=== PATIENT | female | born 1950 | race Caucasian/White ===

== ENCOUNTER 2020-07-30 18:30 | Inpatient (IN) | payer MEDICARE, OTHER ==
[~2020-07-30] VITALS: Ht 162.6 cm; Wt 67.4 kg
--- NOTE | 2020-07-30 18:44 | PHYS DOC ---
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 Patient states that at 1600 she had a new onset of difficulty speaking stating she was unable to speak at all. Then also notes new onset left-sided facial droop and some weakness in the left upper extremity. Denies any vision changes, nausea, vomiting, weakness in the hands. Denies any recent fall or injury. Review of Systems Review of Systems Constitutional: Denies fever or chills [] Eyes: Denies change in visual acuity, redness, or eye pain [] HENT: Denies nasal congestion or sore throat [] Respiratory: Denies cough or shortness of breath [] Cardiovascular: No additional information not addressed in HPI [] GI: Denies abdominal pain, nausea, vomiting, bloody stools or diarrhea [] : Denies dysuria or hematuria [] Musculoskeletal: Denies back pain or joint pain [] Integument: Denies rash or skin lesions [] Neurologic: Denies headache, focal weakness or sensory changes [] Endocrine: Denies polyuria or polydipsia [] All other systems were reviewed and found to be within normal limits, except as documented in this note. Current Medications Current Medications Current Medications Medications (Trade) Dose Ordered Sig/Carlos Start Time Stop Time Status Last Admin Dose Admin Alteplase, Recombinant 54.7 ml @ 54.7 mls/hr 1X ONCE 07/30/20 19:00 07/30/20 19:59 UNV Labetalol HCl (Normodyne Iv Push) 10 mg PRN Q10MIN PRN 07/30/20 19:00 UNV Nicardipine HCl 50 mg/Sodium Chloride 250 ml @ 25 mls/hr CONT PRN PRN 07/30/20 19:00 UNV Sodium Chloride 50 ml @ 50 mls/hr 1X ONCE 07/30/20 19:00 07/30/20 19:59 UNV Physical Exam Physical Exam Constitutional: Well developed, well nourished, no acute distress, non-toxic appearance. [] HENT: Normocephalic, atraumatic, bilateral external ears normal, oropharynx moist, no oral exudates, nose normal. [] Eyes: PERRLA, EOMI, conjunctiva normal, no discharge. [] Neck: Normal range of motion, no tenderness, supple, no stridor. [] Cardiovascular:Heart rate regular rhythm, no murmur [] Lungs & Thorax: Bilateral breath sounds clear to auscultation [] Abdomen: Bowel sounds normal, soft, no tenderness, no masses, no pulsatile masses. [] Skin: Warm, dry, no erythema, no rash. [] Back: No tenderness, no CVA tenderness. [] Extremities: No tenderness, no cyanosis, no clubbing, ROM intact, no edema. [] Neurologic: Alert and oriented X 3, left-sided facial droop with audible dysarthria, normal sensory function, no focal deficits noted. [] Psychologic: Affect normal, judgement normal, mood normal. [] EKG EKG [] Radiology/Procedures Radiology/Procedures [] Course & Med Decision Making Course & Med Decision Making Pertinent Labs and Imaging studies reviewed. (See chart for details) [] 18:44 - CT head negative for ICH 19:00 - Neurology attending paged on pateint arrival to ER and when CT negative, no response. Reaching critical 3 hour patrice from last known well, will proceed with tPA Dragon Disclaimer Dragon Disclaimer This electronic medical record was generated, in whole or in part, using a voice recognition dictation system. PATRICE ROCHE MD Jul 30, 2020 18:44
--- NOTE | 2020-07-30 18:45 | RAD ---
Exam: CT head INDICATION: Weakness TECHNIQUE: Sequential axial images through the head were obtained without the administration of IV co ntrast. Comparisons: None FINDINGS: No focal parenchymal lesion or hemorrhage is identified. There is no midline shift or sulcal effaceme nt. Mild patchy hypodensity in the periventricular white matter. No acute vascular territory infarction i s identified. Veloz-white distinction is preserved. The ventricular system is within normal limits without compression hydrocephalus. The basal cisterns are well maintained. The visualized portions of the paranasal sinuses and mastoid air cells are well-pneumatized. No acute fractures. IMPRESSION: Mild small vessel ischemic change, technically age indeterminate without recent prior imaging. No acu te hemorrhage. Exposure: One or more of the following in the visualized dose reduction techniques were utilized for this examination: 1. Automated exposure control 2. Adjustment of the MA and/or KV according to patient size Use of iterative of reconstructive technique FOR INTERNAL CODING PURPOSES Critical result: Findings discussed with Ines at 07/30/2020 6:40 PM. RESULT CODE: (C) Electronically signed by: Manpreet Bond MD (07/30/2020 6:42 PM) [facility]
[2020-07-30] MEDS ORDERED: IV NORMAL SALINE 50ML 50 ML IV ONE (19:00)
[2020-07-30] MEDS ORDERED: LABETALOL 20 MG/4 ML DISP.SYRIN. IVP PRN (19:00)
[2020-07-30] MEDS ORDERED: ALTEPLASE IV ONE (19:00)
[2020-07-30] MEDS ORDERED: ALTEPLASE 6 MG IV ONE (19:00)
[2020-07-30 19:03] LABS: BASO # 0.1 x10^3/uL (0.0-0.2); BASO % 1 % (0-3); EOS # 0.3 x10^3/uL (0.0-0.7); EOS % 3 % (0-3); HEMATOCRIT 42.2 % (36.0-47.0); HEMOGLOBIN 14.1 g/dL (12.0-15.5); LYMPH # 5.3 x10^3/uL (1.0-4.8); LYMPH % 47 % (24-48); MEAN CORPUSCULAR HEMOGLOBIN 31 pg (25-35); MEAN CORPUSCULAR HGB CONC 34 g/dL (31-37); MEAN CORPUSCULAR VOLUME 94 fL (79-100); MONO # 0.6 x10^3/uL (0.0-1.1); MONO % 6 % (0-9); NEUT % 44 % (31-73); PLATELET COUNT 231 x10^3/uL (140-400); RED BLOOD COUNT 4.51 x10^6/uL (3.50-5.40); RED CELL DISTRIBUTION WIDTH 14.2 % (11.5-14.5); WHITE BLOOD COUNT 11.3 x10^3/uL (4.0-11.0)
[2020-07-30 19:13] LABS: PROTHROMBIN TIME PATIENT 12.5 SEC (11.7-14.0)
[2020-07-30 19:31] LABS: CALCIUM 8.4 mg/dL (8.5-10.1); CREATININE 0.7 mg/dL (0.6-1.0); GFR 82.3; POTASSIUM 3.8 mmol/L (3.5-5.1)
[2020-07-30] MEDS ORDERED: IOHEXOL 350 MG/ML 100 ML VIAL. IV ONE (19:45)
[2020-07-30] MEDS ORDERED: MORPHINE SULFATE 4 MG/ML VIAL. IV PRN (21:00)
[2020-07-30] MEDS ORDERED: ONDANSETRON PF 4 MG/2 ML VIAL. IV PRN (21:00)
--- NOTE | 2020-07-30 21:01 | RAD ---
Exam: CTA head and neck INDICATION: Left-sided facial droop TECHNIQUE: Sequential axial images through the head and neck obtained following the administration of 90 mL of Isovue-370 IV contrast. Sagittal and coronal reformatted images were reconstructed from the axial data and reviewed. 3-D reformatted images were reconstructed from the axial data and reviewed. Comparisons: None FINDINGS: CTA neck: Visual is portions thoracic aorta are unremarkable. Standard three-vessel aortic arch anatomy. Right common carotid artery is patent without evidence of stenosis, occlusion or aneurysm. There is m ild plaque at the origin of the right internal carotid artery without significant stenosis. Left common carotid artery is patent without evidence of stenosis, occlusion or aneurysm. Cervical se gment of the left internal carotid artery is patent without evidence of stenosis, occlusion or aneury sm. Right vertebral artery is patent to the basilar confluence without evidence of stenosis, occlusion or aneurysm. Left vertebral artery is patent to basilar confluence that evidence of stenosis, occlusion or aneurys m. Visualized paraspinal soft tissues are unremarkable. CTA HEAD: Mild calcified plaque at the cavernous segment of the right internal carotid artery. Right MCA is pat ent. Right SHASHANK is patent. Mild calcified plaque at the cavernous segment of the left internal carotid artery without cement minna nosis. Left MCA is patent. Left SHASHANK is patent. Basilar artery is patent without evidence of stenosis, occlusion or aneurysm. survival specialist are patent bilater ally. IMPRESSION: 1. No large vessel occlusion. 2. Mild plaque at the origin of the internal carotid arteries bilaterally without significant stenos is. 3. Mild calcified plaque at the cavernous segments of the internal carotid arteries bilaterally with out stenosis stenosis. Exposure: One or more of the following in the visualized dose reduction techniques were utilized for this examination: 1. Automated exposure control 2. Adjustment of the MA and/or KV according to patient size 3. Use of iterative of reconstructive technique FOR INTERNAL CODING PURPOSES Critical result: Findings discussed with Rach at 07/30/2020 8:50 PM. RESULT CODE: (C) Electronically signed by: Manpreet Bond MD (07/30/2020 8:58 PM) [facility]
--- NOTE | 2020-07-30 21:20 | EKG ---
[facility] [address] [place] [address] Test Date: 2020-07-30 Test Time: 18:44:46 Pat Name: UNIQUE ARAUJO Department: Room: Gender: F Mud Jack Operator: : [id number] Requested By: PATRICE ROCHE Order Number: [id number] Reading MD: Measurements Intervals [place] Rate: 89 P: 67 VT: 140 QRS: 58 QRSD: 94 T: 47 QT: 392 QTc: 478 Interpretive Statements SINUS RHYTHM PROLONGED QT NO SPECIFIC ECG ABNORMALITIES RI6.02 No previous ECG available for comparison
[2020-07-30 21:45] VITALS: BP 154/78
[2020-07-30 22:00] VITALS: BP 131/77
[2020-07-30 22:15] VITALS: BP 138/70
[2020-07-30 22:30] VITALS: BP 133/72
[2020-07-30 23:00] VITALS: BP 138/70
[2020-07-30 23:30] VITALS: BP 135/64
[2020-07-31] VITALS (26 sets, daily range): BP systolic 112–143; BP diastolic 50–67
[2020-07-31] MEDS ORDERED: DOXY100C2 PO (02:04)
[2020-07-31] MEDS ORDERED: AMLO-186 PO (02:04)
[2020-07-31] MEDS ORDERED: CETI10TA74 PO (02:04)
[2020-07-31] MEDS ORDERED: OMEP40CA45 PO (02:04)
[2020-07-31] MEDS ORDERED: ALBU2.5V8 INH (02:04)
[2020-07-31 05:29] LABS: BASO % 0 % (0-3); EOS # 0.2 x10^3/uL (0.0-0.7); EOS % 3 % (0-3); HEMATOCRIT 41.2 % (36.0-47.0); HEMOGLOBIN 13.8 g/dL (12.0-15.5); LYMPH # 3.2 x10^3/uL (1.0-4.8); LYMPH % 36 % (24-48); MEAN CORPUSCULAR HEMOGLOBIN 31 pg (25-35); MEAN CORPUSCULAR HGB CONC 33 g/dL (31-37); MEAN CORPUSCULAR VOLUME 94 fL (79-100); MONO # 0.6 x10^3/uL (0.0-1.1); MONO % 6 % (0-9); NEUT # 4.8 x10^3/uL (1.8-7.7); NEUT % 54 % (31-73); PLATELET COUNT 212 x10^3/uL (140-400); RED BLOOD COUNT 4.39 x10^6/uL (3.50-5.40); RED CELL DISTRIBUTION WIDTH 14.2 % (11.5-14.5); WHITE BLOOD COUNT 8.9 x10^3/uL (4.0-11.0)
[2020-07-31 05:47] LABS: ALBUMIN 2.8 g/dL (3.4-5.0); ALBUMIN/GLOBULIN RATIO 0.6 (1.0-1.7); CALCIUM 8.9 mg/dL (8.5-10.1); CREATININE 0.6 mg/dL (0.6-1.0); GFR 98.3; POTASSIUM 3.6 mmol/L (3.5-5.1); TOTAL BILIRUBIN 0.6 mg/dL (0.2-1.0); TOTAL PROTEIN 7.2 g/dL (6.4-8.2)
[2020-07-31 05:52] LABS: CHOLESTEROL/HDL RATIO 5.4
--- NOTE | 2020-07-31 06:00 | NUR ---
Received patient to room 105 after report from ED RN with retinal surgeon at bed side. NIH stroke scale initiated.All monitors applied and stroke protocol initiated. Left side of mouth found to droop badly with pt having difficulty controlling secretions on lt side of mouth and forming words, leading to severe slurring. Lt eye drooping moderately. Pt states she feels like this is "better" than on arrival to ED. Stroke education begun. Will monitor for changes.
--- NOTE | 2020-07-31 10:37 | PDOC1 ---
History and Physical Date of Admission Date of Admission DATE: 07/31/20 TIME: 10:34 Identification/Chief Complaint Chief Complaint LEFT SIDED FACIAL DROOP, dysarthria x 3 hrs History of Present Illness History of Present Illness 70 year old female with reported history of TBI, hypertension and GERD presented emergency department for new onset of dysarthria and left-sided facial droop, family called 911 . Patient states that at 1600 4-17 she had a new onset of difficulty speaking stating she was unable to speak also noted new onset left-sided facial droop and some weakness in the left upper extremity. Denies any vision changes, nausea, vomiting, SOME weakness swallow left gip remains mildly weak today given TPA in ER , admitted to icu after neurology consult ct head c/w Mild small vessel ischemic change, age indeterminate LDL cholesterol 128 hgb 13.8 currently on 3 liters nc o2 , diastolic htn in er NOTED Mild plaque at the origin of the internal carotid arteries bilaterally without significant stenosis. on cta head and neck on dysphagia I diet w/ honey thick liquids, swallow precautions, ST f/u for dysphagia. 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 Past Medical History Past Medical History TBI, GERD Cardiovascular: HTN, Hyperlipidemia Infectious disease: No pertinent hx Endocrine: No pertinent hx Dermatology: No pertinent hx Family History Family History: Hypertension Social History Smoke: <1 pack per day ALCOHOL: none Drugs: None Current Medications Current Medications Current Medications Alteplase, Recombinant 6 ml @ 360 mls/hr 1X ONCE IV Last administered on 07/30/20at 19:23; Start 07/30/20 at 19:00; Stop 07/30/20 at 19:05; Status DC Alteplase, Recombinant 55 ml @ 55 mls/hr 1X ONCE IV Last administered on 07/30/20at 19:26; Start 07/30/20 at 19:00; Stop 07/30/20 at 19:59; Status DC Sodium Chloride 50 ml @ 50 mls/hr 1X ONCE IV Last administered on 07/30/20at 20:26; Start 07/30/20 at 19:00; Stop 07/30/20 at 19:59; Status DC Labetalol HCl (Normodyne Iv Push) 10 mg PRN Q10MIN PRN IVP HYPERTENSION; Start 07/30/20 at 19:00 Nicardipine HCl 50 mg/Sodium Chloride 250 ml @ 25 mls/hr CONT PRN PRN IV HYPERTENSION; Start 07/30/20 at 19:00 Iohexol (Omnipaque 350 Mg/ml) 75 ml 1X ONCE IV Last administered on 07/30/20at 20:25; Start 07/30/20 at 19:45; Stop 07/30/20 at 19:46; Status DC Ondansetron HCl (Zofran) 4 mg PRN Q8HRS PRN IV NAUSEA/VOMITING; Start 07/30/20 at 21:00; Stop 07/31/20 at 20:59 Morphine Sulfate (Morphine Sulfate) 4 mg PRN Q2HR PRN IV PAIN; Start 07/30/20 at 21:00; Stop 07/31/20 at 20:59 Active Scripts Active Reported Proair Hfa (Albuterol Sulfate) 8.5 Gm Hfa.aer.ad 1 Puff INH PRN Q6HRS PRN Omeprazole 40 Mg Capsule.dr 1 Cap PO DAILY Amlodipine Besylate 5 Mg Tablet 5 Mg PO DAILY Doxycycline Hyclate 100 Mg Capsule 1 Cap PO BID Zyrtec (Cetirizine Hcl) 10 Mg Tablet 1 Tab PO DAILY Allergies Allergies: Coded Allergies: codeine (Verified Adverse Reaction, Intermediate, HEADACHE, 07/31/20) ROS Review of System Constitutional: Denies fever or chills [] Eyes: Denies change in visual acuity, redness, or eye pain [] HENT: Denies nasal congestion or sore throat [] Respiratory: Denies cough or shortness of breath [] Cardiovascular: No additional information not addressed in HPI [] GI: Denies abdominal pain, nausea, vomiting, bloody stools or diarrhea [] : Denies dysuria or hematuria [] Musculoskeletal: Denies back pain or joint pain [] Integument: Denies rash or skin lesions [] Neurologic: Denies headache, pos left arm focal weakness better [] Endocrine: Denies polyuria or polydipsia [] 14 pt systems were reviewed and found to be within normal limits, except as documented General: No: Chills, Night Sweats, Fatigue, Malaise, Appetite, Other PSYCHOLOGICAL ROS: No: Anxiety, Behavioral Disorder, Concentration difficultie, Decreased libido, Depression, Disorientation, Hallucinations, Hostility, Irritablity, Memory difficulties, Mood Swings, Obsessive thoughts, Physical abuse, Sexual abuse, Sleep disturbances, Suicidal ideation, Other Eyes: Yes Decreased vision; No Blurry vision, No Double vision, No Dry eyes, No Excessive tearing, No Eye Pain, No Itchy Eyes, No Loss of vision, No Photophobia, No Scotomata, No Uses contacts, No Uses glasses, No Other HEENT: YES: Other (right facial weakness); No: Heacaches, Visual Changes, Hearing change, Nasal congestion, Nasal discharge, Oral lesions, Sinus pain, Sore Throat, Epistaxis, Sneezing, Snoring, Tinnitus, Vertigo, Vocal changes Hematological and Lymphatic: No: Bleeding Problems, Blood Clots, Blood Transfusions, Brusing, Night Sweats, Pallor, Swollen Lymph Nodes, Other ENDOCRINE: No: Breast Changes, Galactorrhea, Hair Pattern Changes, Hot Flashes, Malaise/lethargy, Mood Swings, Palpitations, Polydipsia/polyuria, Skin Changes, Temperature Intolerance, Unexpected Weight Changes, Other Respiratory: No: Cough, Hemoptysis, Orthopnea, Pleuritic Pain, Shortness of breath, SOB with excertion, Sputum Changes, Stridor, Tachypnea, Wheezing, Other Cardiovascular: No Chest Pain, No Palpitations, No Orthopnea, No Paroxysmal Noc. Dyspnea, No Edema, No Lt Headedness, No Other Gastrointestinal: No Nausea, No Vomiting, No Abdominal Pain, No Diarrhea, No Constipation, No Melena, No Hematochezia, No Other Musculoskeletal: Yes Joint Stiffness, Yes Muscular Weakness Neurological: Yes Gait Disturbance Skin: No Dry Skin, No Eczema, No Hair Changes, No Lumps, No Mole Changes, No Mottling, No Nail Changes, No Pruritus, No Rash, No Skin Lesion Changes, No Other, No Acne Physical Exam Physical Exam Constitutional: Well developed, well nourished, no acute distress, non-toxic appearance. [] HENT: Normocephalic, atraumatic, bilateral external ears normal, oropharynx moist, no oral exudates, nose normal. [] poor dentition Eyes: PERRLA, EOMI, conjunctiva normal, no discharge. [] right facial weakness Neck: Normal range of motion, no tenderness, supple, no stridor. [] Cardiovascular:Heart rate regular rhythm, no murmur [] Lungs & Thorax: Bilateral breath sounds clear to auscultation [] Abdomen: Bowel sounds normal, soft, no tenderness, no masses, no pulsatile masses. [] Skin: Warm, dry, no erythema, no rash. [] Back: No tenderness, no CVA tenderness. [] Extremities: No tenderness, no cyanosis, no clubbing, ROM intact, no edema. [] Neurologic: Alert and oriented X 3, left-sided facial droop with dysarthria, normal sensory function, no focal deficits noted. [] Psychologic: Affect normal, judgment normal, mood normal. [] General: Alert, Oriented X3, Cooperative, No acute distress HEENT: Atraumatic, Mucous membr. moist/pink Lungs: Clear to auscultation, Normal air movement Heart: S1S2, RRR, no thrills, no gallops Breasts: Not examined Abdomen: Normal bowel sounds, Soft Rectal Exam: not examined PELVIC: Examination not indicated Extremities: No cyanosis, No edema Neuro: Other (left facial droop) Psych/Mental Status: Mental status NL, Mood NL Vitals Vitals Vital Signs Date Time Temp Pulse Resp B/P (MAP) Pulse Ox O2 Delivery O2 Flow Rate FiO2 07/31/20 10:00 87 22 121/62 (81) 91 Nasal Cannula 4.0 07/31/20 08:00 98.4 98.4 Labs Labs Laboratory Tests Test 07/30/20 18:52 07/30/20 19:17 07/30/20 19:18 07/31/20 05:00 White Blood Count 11.3 x10^3/uL (4.0-11.0) 8.9 x10^3/uL (4.0-11.0) Red Blood Count 4.51 x10^6/uL (3.50-5.40) 4.39 x10^6/uL (3.50-5.40) Hemoglobin 14.1 g/dL (12.0-15.5) 13.8 g/dL (12.0-15.5) Hematocrit 42.2 % (36.0-47.0) 41.2 % (36.0-47.0) Mean Corpuscular Volume 94 fL (79-100) 94 fL (79-100) Mean Corpuscular Hemoglobin 31 pg (25-35) 31 pg (25-35) Mean Corpuscular Hemoglobin Concent 34 g/dL (31-37) 33 g/dL (31-37) Red Cell Distribution Width 14.2 % (11.5-14.5) 14.2 % (11.5-14.5) Platelet Count 231 x10^3/uL (140-400) 212 x10^3/uL (140-400) Neutrophils (%) (Auto) 44 % (31-73) 54 % (31-73) Lymphocytes (%) (Auto) 47 % (24-48) 36 % (24-48) Monocytes (%) (Auto) 6 % (0-9) 6 % (0-9) Eosinophils (%) (Auto) 3 % (0-3) 3 % (0-3) Basophils (%) (Auto) 1 % (0-3) 0 % (0-3) Neutrophils # (Auto) 5.0 x10^3/uL (1.8-7.7) 4.8 x10^3/uL (1.8-7.7) Lymphocytes # (Auto) 5.3 x10^3/uL (1.0-4.8) 3.2 x10^3/uL (1.0-4.8) Monocytes # (Auto) 0.6 x10^3/uL (0.0-1.1) 0.6 x10^3/uL (0.0-1.1) Eosinophils # (Auto) 0.3 x10^3/uL (0.0-0.7) 0.2 x10^3/uL (0.0-0.7) Basophils # (Auto) 0.1 x10^3/uL (0.0-0.2) 0.0 x10^3/uL (0.0-0.2) Prothrombin Time 12.5 SEC (11.7-14.0) Prothromb Time International Ratio 1.0 (0.8-1.1) Activated Partial Thromboplast Time 30 SEC (24-38) Sodium Level 142 mmol/L (136-145) 143 mmol/L (136-145) Potassium Level 3.8 mmol/L (3.5-5.1) 3.6 mmol/L (3.5-5.1) Chloride Level 106 mmol/L (98-107) 107 mmol/L (98-107) Carbon Dioxide Level 25 mmol/L (21-32) 27 mmol/L (21-32) Anion Gap 11 (6-14) 9 (6-14) Blood Urea Nitrogen 13 mg/dL (7-20) 12 mg/dL (7-20) Creatinine 0.7 mg/dL (0.6-1.0) 0.6 mg/dL (0.6-1.0) Estimated GFR (Cockcroft-Gault) 82.3 98.3 Glucose Level 111 mg/dL (70-99) 110 mg/dL (70-99) Calcium Level 8.4 mg/dL (8.5-10.1) 8.9 mg/dL (8.5-10.1) Troponin I Quantitative < 0.017 ng/mL (0.000-0.055) Glucose (Fingerstick) 118 mg/dL (70-99) BUN/Creatinine Ratio 20 (6-20) Total Bilirubin 0.6 mg/dL (0.2-1.0) Aspartate Amino Transf (AST/SGOT) 15 U/L (15-37) Alanine Aminotransferase (ALT/SGPT) 11 U/L (14-59) Alkaline Phosphatase 78 U/L (46-116) Total Protein 7.2 g/dL (6.4-8.2) Albumin 2.8 g/dL (3.4-5.0) Albumin/Globulin Ratio 0.6 (1.0-1.7) Triglycerides Level 132 mg/dL (0-150) Cholesterol Level 189 mg/dL (0-200) LDL Cholesterol, Calculated 128 mg/dL (0-100) VLDL Cholesterol, Calculated 26 mg/dL (0-40) Non-HDL Cholesterol Calculated 154 mg/dL (0-129) HDL Cholesterol 35 mg/dL (40-60) Cholesterol/HDL Ratio 5.4 Laboratory Tests Test 07/30/20 18:52 07/30/20 19:17 07/30/20 19:18 07/31/20 05:00 White Blood Count 11.3 x10^3/uL (4.0-11.0) 8.9 x10^3/uL (4.0-11.0) Red Blood Count 4.51 x10^6/uL (3.50-5.40) 4.39 x10^6/uL (3.50-5.40) Hemoglobin 14.1 g/dL (12.0-15.5) 13.8 g/dL (12.0-15.5) Hematocrit 42.2 % (36.0-47.0) 41.2 % (36.0-47.0) Mean Corpuscular Volume 94 fL (79-100) 94 fL (79-100) Mean Corpuscular Hemoglobin 31 pg (25-35) 31 pg (25-35) Mean Corpuscular Hemoglobin Concent 34 g/dL (31-37) 33 g/dL (31-37) Red Cell Distribution Width 14.2 % (11.5-14.5) 14.2 % (11.5-14.5) Platelet Count 231 x10^3/uL (140-400) 212 x10^3/uL (140-400) Neutrophils (%) (Auto) 44 % (31-73) 54 % (31-73) Lymphocytes (%) (Auto) 47 % (24-48) 36 % (24-48) Monocytes (%) (Auto) 6 % (0-9) 6 % (0-9) Eosinophils (%) (Auto) 3 % (0-3) 3 % (0-3) Basophils (%) (Auto) 1 % (0-3) 0 % (0-3) Neutrophils # (Auto) 5.0 x10^3/uL (1.8-7.7) 4.8 x10^3/uL (1.8-7.7) Lymphocytes # (Auto) 5.3 x10^3/uL (1.0-4.8) 3.2 x10^3/uL (1.0-4.8) Monocytes # (Auto) 0.6 x10^3/uL (0.0-1.1) 0.6 x10^3/uL (0.0-1.1) Eosinophils # (Auto) 0.3 x10^3/uL (0.0-0.7) 0.2 x10^3/uL (0.0-0.7) Basophils # (Auto) 0.1 x10^3/uL (0.0-0.2) 0.0 x10^3/uL (0.0-0.2) Prothrombin Time 12.5 SEC (11.7-14.0) Prothromb Time International Ratio 1.0 (0.8-1.1) Activated Partial Thromboplast Time 30 SEC (24-38) Sodium Level 142 mmol/L (136-145) 143 mmol/L (136-145) Potassium Level 3.8 mmol/L (3.5-5.1) 3.6 mmol/L (3.5-5.1) Chloride Level 106 mmol/L (98-107) 107 mmol/L (98-107) Carbon Dioxide Level 25 mmol/L (21-32) 27 mmol/L (21-32) Anion Gap 11 (6-14) 9 (6-14) Blood Urea Nitrogen 13 mg/dL (7-20) 12 mg/dL (7-20) Creatinine 0.7 mg/dL (0.6-1.0) 0.6 mg/dL (0.6-1.0) Estimated GFR (Cockcroft-Gault) 82.3 98.3 Glucose Level 111 mg/dL (70-99) 110 mg/dL (70-99) Calcium Level 8.4 mg/dL (8.5-10.1) 8.9 mg/dL (8.5-10.1) Troponin I Quantitative < 0.017 ng/mL (0.000-0.055) Glucose (Fingerstick) 118 mg/dL (70-99) BUN/Creatinine Ratio 20 (6-20) Total Bilirubin 0.6 mg/dL (0.2-1.0) Aspartate Amino Transf (AST/SGOT) 15 U/L (15-37) Alanine Aminotransferase (ALT/SGPT) 11 U/L (14-59) Alkaline Phosphatase 78 U/L (46-116) Total Protein 7.2 g/dL (6.4-8.2) Albumin 2.8 g/dL (3.4-5.0) Albumin/Globulin Ratio 0.6 (1.0-1.7) Triglycerides Level 132 mg/dL (0-150) Cholesterol Level 189 mg/dL (0-200) LDL Cholesterol, Calculated 128 mg/dL (0-100) VLDL Cholesterol, Calculated 26 mg/dL (0-40) Non-HDL Cholesterol Calculated 154 mg/dL (0-129) HDL Cholesterol 35 mg/dL (40-60) Cholesterol/HDL Ratio 5.4 Images Images Exam: CTA head and neck INDICATION: Left-sided facial droop TECHNIQUE: Sequential axial images through the head and neck obtained following the administration of 90 mL of Isovue-370 IV contrast. Sagittal and coronal reformatted images were reconstructed from the axial data and reviewed. 3-D reformatted images were reconstructed from the axial data and reviewed. Comparisons: None FINDINGS: CTA neck: Visual is portions thoracic aorta are unremarkable. Standard three-vessel aortic arch anatomy. Right common carotid artery is patent without evidence of stenosis, occlusion or aneurysm. There is mild plaque at the origin of the right internal carotid artery without significant stenosis. Left common carotid artery is patent without evidence of stenosis, occlusion or aneurysm. Cervical segment of the left internal carotid artery is patent without evidence of stenosis, occlusion or aneurysm. Right vertebral artery is patent to the basilar confluence without evidence of stenosis, occlusion or aneurysm. Left vertebral artery is patent to basilar confluence that evidence of stenosis, occlusion or aneurysm. Visualized paraspinal soft tissues are unremarkable. CTA HEAD: Mild calcified plaque at the cavernous segment of the right internal carotid artery. Right MCA is patent. Right SHASHANK is patent. Mild calcified plaque at the cavernous segment of the left internal carotid artery without cement stenosis. Left MCA is patent. Left SHASHANK is patent. Basilar artery is patent without evidence of stenosis, occlusion or aneurysm. receptionist clerk are patent bilaterally. IMPRESSION: 1. No large vessel occlusion. 2. Mild plaque at the origin of the internal carotid arteries bilaterally without significant stenosis. 3. Mild calcified plaque at the cavernous segments of the internal carotid arteries bilaterally without stenosis stenosis. Exposure: One or more of the following in the visualized dose reduction techniques were utilized for this examination: 1. Automated exposure control 2. Adjustment of the MA and/or KV according to patient size 3. Use of iterative of reconstructive technique FOR INTERNAL CODING PURPOSES Critical result: Findings discussed with Rach at 07/30/2020 8:50 PM. RESULT CODE: (C) Exam: CT head INDICATION: Weakness TECHNIQUE: Sequential axial images through the head were obtained without the administration of IV contrast. Comparisons: None FINDINGS: No focal parenchymal lesion or hemorrhage is identified. There is no midline shift or sulcal effacement. Mild patchy hypodensity in the periventricular white matter. No acute vascular territory infarction is identified. Veloz-white distinction is preserved. The ventricular system is within normal limits without compression hy drocephalus. The basal cisterns are well maintained. The visualized portions of the paranasal sinuses and mastoid air cells are well- pneumatized. No acute fractures. IMPRESSION: Mild small vessel ischemic change, technically age indeterminate without recent prior imaging. No acute hemorrhage. Exposure: One or more of the following in the visualized dose reduction techniques were utilized for this examination: 1. Automated exposure control 2. Adjustment of the MA and/or KV according to patient size Use of iterative of reconstructive technique FOR INTERNAL CODING PURPOSES Critical result: Findings discussed with Ines at 07/30/2020 6:40 PM. RESULT CODE: (C) Electronically signed by: Manpreet Keita MD (07/30/2020 6:42 PM) [facility] Exam: CTA head and neck INDICATION: Left-sided facial droop TECHNIQUE: Sequential axial images through the head and neck obtained following the administration of 90 mL of Isovue-370 IV contrast. Sagittal and coronal reformatted images were reconstructed from the axial data and reviewed. 3-D reformatted images were reconstructed from the axial data and reviewed. Comparisons: None FINDINGS: CTA neck: Visual is portions thoracic aorta are unremarkable. Standard three-vessel aortic arch anatomy. Right common carotid artery is patent without evidence of stenosis, occlusion or aneurysm. There is mild plaque at the origin of the right internal carotid artery without significant stenosis. Left common carotid artery is patent without evidence of stenosis, occlusion or aneurysm. Cervical segment of the left internal carotid artery is patent without evidence of stenosis, occlusion or aneurysm. Right vertebral artery is patent to the basilar confluence without evidence of stenosis, occlusion or aneurysm. Left vertebral artery is patent to basilar confluence that evidence of stenosis, occlusion or aneurysm. Visualized paraspinal soft tissues are unremarkable. CTA HEAD: Mild calcified plaque at the cavernous segment of the right internal carotid artery. Right MCA is patent. Right SHASHANK is patent. Mild calcified plaque at the cavernous segment of the left internal carotid artery without cement stenosis. Left MCA is patent. Left SHASHANK is patent. Basilar artery is patent without evidence of stenosis, occlusion or aneurysm. receptionist clerk are patent bilaterally. IMPRESSION: 1. No large vessel occlusion. 2. Mild plaque at the origin of the internal carotid arteries bilaterally without significant stenosis. 3. Mild calcified plaque at the cavernous segments of the internal carotid arteries bilaterally without stenosis stenosis. Exposure: One or more of the following in the visualized dose reduction techniques were utilized for this examination: 1. Automated exposure control 2. Adjustment of the MA and/or KV according to patient size 3. Use of iterative of reconstructive technique FOR INTERNAL CODING PURPOSES Critical result: Findings discussed with Rach at 07/30/2020 8:50 PM. RESULT CODE: (C) Electronically signed by: Manpreet Keita MD (07/30/2020 8:58 PM) [facility] DICTATED and SIGNED BY: MANPREET KEITA MD DATE: 07/30/[id number] VTE Prophylaxis Ordered VTE Prophylaxis Devices: No VTE Pharmacological Prophylaxi: Contraindicated Assessment/Plan Assessment/Plan impression Acute CVA POST emergent TPA with acute stroke like symptoms in TPA window , aphasia resolved, dysphagia persists Hyperlipidemia hypertension, better control since admit GERD Dysarthria Mild plaque at the origin of the internal carotid arteries bilaterally without significant stenosis. tobacco abuse disorder remote hx Chamorro's palsy plan admit ICU BED Neurology consult ASA when able STATIN neurochecks q 4 hrs consider MRI HEAD PT/OT/ST on dysphagia I diet w/ honey thick liquids swallow precautions, ST f/u for dysphagia. smoking cessation encouraged 34 MIN cc time Justifications for Admission Other Justification JAVON PRINGLE MD Jul 31, 2020 10:37
[2020-07-31] MEDS ORDERED: ALBUTEROL SULFATE 2.5 MG/3 ML NEBU. INH PRN (10:45)
--- NOTE | 2020-07-31 10:51 | NUR ---
Bedside Swallow Evaluation completed. Please refer to full report in intervention section for additional information. Impressions: Moderate oropharyngeal dysphagia w/ prior R side facial/labial impairment now w/ L side impairment from stroke resulting in oral spillage and decreased control and transit of boluses. Pt appears at low risk of aspiration for dysphagia I diet w/ honey thick liquids. Pt demonstrates decreased control of thin liquids both anteriorly and posteriorly and s/s aspiration were noted. Pt at risk of aspiration w/ thin liquids. Recommendations: Initiate dysphagia I diet w/ honey thick liquids, swallow precautions, ST f/u for dysphagia.
--- NOTE | 2020-07-31 15:07 | PDOC2 ---
CONSULT Date of Consult Date of Consult DATE: 07/31/20 TIME: 15:07 Reason for Consult Reason for Consult: CVA Identification/Chief Complaint Chief Complaint left side weakness History of Present Illness Reason for Visit: This patient is 70-year-old woman with past medical history of multiple medical problems who presented to emergency room with acute onset of symptoms patient was having left facial droop, difficulty speaking, weakness on left side of the body. Patient presented to emergency room acute fashion. Patient was within the window for IV t-PA. Patient did not have any contraindications for IV t-PA. They accepted risk and benefit for IV t-PA. Patient patient received IV t-PA Past Medical History Cardiovascular: HTN, Hyperlipidemia Infectious disease: No pertinent hx Endocrine: No pertinent hx Dermatology: No pertinent hx Family History Family History: Hypertension Social History <1 pack per day ALCOHOL: none Drugs: None Current Medications Current Medications Current Medications Alteplase, Recombinant 6 ml @ 360 mls/hr 1X ONCE IV Last administered on 07/30/20at 19:23; Start 07/30/20 at 19:00; Stop 07/30/20 at 19:05; Status DC Alteplase, Recombinant 55 ml @ 55 mls/hr 1X ONCE IV Last administered on 07/30/20at 19:26; Start 07/30/20 at 19:00; Stop 07/30/20 at 19:59; Status DC Sodium Chloride 50 ml @ 50 mls/hr 1X ONCE IV Last administered on 07/30/20at 20:26; Start 07/30/20 at 19:00; Stop 07/30/20 at 19:59; Status DC Labetalol HCl (Normodyne Iv Push) 10 mg PRN Q10MIN PRN IVP HYPERTENSION; Start 07/30/20 at 19:00 Nicardipine HCl 50 mg/Sodium Chloride 250 ml @ 25 mls/hr CONT PRN PRN IV HYPERTENSION; Start 07/30/20 at 19:00 Iohexol (Omnipaque 350 Mg/ml) 75 ml 1X ONCE IV Last administered on 07/30/20at 20:25; Start 07/30/20 at 19:45; Stop 07/30/20 at 19:46; Status DC Ondansetron HCl (Zofran) 4 mg PRN Q8HRS PRN IV NAUSEA/VOMITING; Start 07/30/20 at 21:00; Stop 07/31/20 at 20:59 Morphine Sulfate (Morphine Sulfate) 4 mg PRN Q2HR PRN IV PAIN; Start 07/30/20 at 21:00; Stop 07/31/20 at 20:59 Albuterol Sulfate (Ventolin Neb Soln) 2.5 mg PRN Q6HRS PRN INH SHORTNESS OF BREATH; Start 07/31/20 at 10:45 Amlodipine Besylate (Norvasc) 5 mg DAILY PO ; Start 08/01/20 at 09:00 Cetirizine HCl (ZyrTEC) 10 mg DAILY PO ; Start 08/01/20 at 09:00 Pantoprazole Sodium (Protonix) 40 mg DAILYAC PO ; Start 08/01/20 at 07:30 Active Scripts Active Reported Proair Hfa (Albuterol Sulfate) 8.5 Gm Hfa.aer.ad 1 Puff INH PRN Q6HRS PRN Omeprazole 40 Mg Capsule.dr 1 Cap PO DAILY Amlodipine Besylate 5 Mg Tablet 5 Mg PO DAILY Doxycycline Hyclate 100 Mg Capsule 1 Cap PO BID Zyrtec (Cetirizine Hcl) 10 Mg Tablet 1 Tab PO DAILY Allergies Allergies: Coded Allergies: codeine (Verified Adverse Reaction, Intermediate, HEADACHE, 07/31/20) Physical Exam Physical Exam General no acute distress. HEENT: Normocephalic and atraumatic. NECK: Supple without bruit Respiratory: Clear to auscultation bilaterally Heart: Regular rate and rhythm, S1S2 normal NEUROLOGIC: Mental status Alert able to tell her name Knows in hospital Cranial nerve equally reactive pupils, and intact extraocular movements. Left facial asymmetry. Palate elevates and tongue protrudes in midline. Reflexes are 1-2 with flexor plantar responses. Coordination no dysmetria Strength able to move all exts left side weakness effort dependent Sensory exam is intact for light touch and pinprick. Gait in bed. A 10-point review of systems was obtained. Other than the history of present illness the remainder of the review of systems is negative. Vitals VITALS Vital Signs Date Time Temp Pulse Resp B/P (MAP) Pulse Ox O2 Delivery O2 Flow Rate FiO2 07/31/20 15:00 72 18 124/54 (77) 97 Nasal Cannula 3.0 07/31/20 12:00 98.2 98.2 Labs Labs Laboratory Tests Test 07/30/20 18:52 4/17/21 19:17 07/30/20 19:18 07/31/20 05:00 White Blood Count 11.3 x10^3/uL (4.0-11.0) 8.9 x10^3/uL (4.0-11.0) Red Blood Count 4.51 x10^6/uL (3.50-5.40) 4.39 x10^6/uL (3.50-5.40) Hemoglobin 14.1 g/dL (12.0-15.5) 13.8 g/dL (12.0-15.5) Hematocrit 42.2 % (36.0-47.0) 41.2 % (36.0-47.0) Mean Corpuscular Volume 94 fL (79-100) 94 fL (79-100) Mean Corpuscular Hemoglobin 31 pg (25-35) 31 pg (25-35) Mean Corpuscular Hemoglobin Concent 34 g/dL (31-37) 33 g/dL (31-37) Red Cell Distribution Width 14.2 % (11.5-14.5) 14.2 % (11.5-14.5) Platelet Count 231 x10^3/uL (140-400) 212 x10^3/uL (140-400) Neutrophils (%) (Auto) 44 % (31-73) 54 % (31-73) Lymphocytes (%) (Auto) 47 % (24-48) 36 % (24-48) Monocytes (%) (Auto) 6 % (0-9) 6 % (0-9) Eosinophils (%) (Auto) 3 % (0-3) 3 % (0-3) Basophils (%) (Auto) 1 % (0-3) 0 % (0-3) Neutrophils # (Auto) 5.0 x10^3/uL (1.8-7.7) 4.8 x10^3/uL (1.8-7.7) Lymphocytes # (Auto) 5.3 x10^3/uL (1.0-4.8) 3.2 x10^3/uL (1.0-4.8) Monocytes # (Auto) 0.6 x10^3/uL (0.0-1.1) 0.6 x10^3/uL (0.0-1.1) Eosinophils # (Auto) 0.3 x10^3/uL (0.0-0.7) 0.2 x10^3/uL (0.0-0.7) Basophils # (Auto) 0.1 x10^3/uL (0.0-0.2) 0.0 x10^3/uL (0.0-0.2) Prothrombin Time 12.5 SEC (11.7-14.0) Prothromb Time International Ratio 1.0 (0.8-1.1) Activated Partial Thromboplast Time 30 SEC (24-38) Sodium Level 142 mmol/L (136-145) 143 mmol/L (136-145) Potassium Level 3.8 mmol/L (3.5-5.1) 3.6 mmol/L (3.5-5.1) Chloride Level 106 mmol/L (98-107) 107 mmol/L (98-107) Carbon Dioxide Level 25 mmol/L (21-32) 27 mmol/L (21-32) Anion Gap 11 (6-14) 9 (6-14) Blood Urea Nitrogen 13 mg/dL (7-20) 12 mg/dL (7-20) Creatinine 0.7 mg/dL (0.6-1.0) 0.6 mg/dL (0.6-1.0) Estimated GFR (Cockcroft-Gault) 82.3 98.3 Glucose Level 111 mg/dL (70-99) 110 mg/dL (70-99) Calcium Level 8.4 mg/dL (8.5-10.1) 8.9 mg/dL (8.5-10.1) Troponin I Quantitative < 0.017 ng/mL (0.000-0.055) Glucose (Fingerstick) 118 mg/dL (70-99) BUN/Creatinine Ratio 20 (6-20) Total Bilirubin 0.6 mg/dL (0.2-1.0) Aspartate Amino Transf (AST/SGOT) 15 U/L (15-37) Alanine Aminotransferase (ALT/SGPT) 11 U/L (14-59) Alkaline Phosphatase 78 U/L (46-116) Total Protein 7.2 g/dL (6.4-8.2) Albumin 2.8 g/dL (3.4-5.0) Albumin/Globulin Ratio 0.6 (1.0-1.7) Triglycerides Level 132 mg/dL (0-150) Cholesterol Level 189 mg/dL (0-200) LDL Cholesterol, Calculated 128 mg/dL (0-100) VLDL Cholesterol, Calculated 26 mg/dL (0-40) Non-HDL Cholesterol Calculated 154 mg/dL (0-129) HDL Cholesterol 35 mg/dL (40-60) Cholesterol/HDL Ratio 5.4 Laboratory Tests Test 07/30/20 18:52 07/30/20 19:17 07/30/20 19:18 07/31/20 05:00 White Blood Count 11.3 x10^3/uL (4.0-11.0) 8.9 x10^3/uL (4.0-11.0) Red Blood Count 4.51 x10^6/uL (3.50-5.40) 4.39 x10^6/uL (3.50-5.40) Hemoglobin 14.1 g/dL (12.0-15.5) 13.8 g/dL (12.0-15.5) Hematocrit 42.2 % (36.0-47.0) 41.2 % (36.0-47.0) Mean Corpuscular Volume 94 fL (79-100) 94 fL (79-100) Mean Corpuscular Hemoglobin 31 pg (25-35) 31 pg (25-35) Mean Corpuscular Hemoglobin Concent 34 g/dL (31-37) 33 g/dL (31-37) Red Cell Distribution Width 14.2 % (11.5-14.5) 14.2 % (11.5-14.5) Platelet Count 231 x10^3/uL (140-400) 212 x10^3/uL (140-400) Neutrophils (%) (Auto) 44 % (31-73) 54 % (31-73) Lymphocytes (%) (Auto) 47 % (24-48) 36 % (24-48) Monocytes (%) (Auto) 6 % (0-9) 6 % (0-9) Eosinophils (%) (Auto) 3 % (0-3) 3 % (0-3) Basophils (%) (Auto) 1 % (0-3) 0 % (0-3) Neutrophils # (Auto) 5.0 x10^3/uL (1.8-7.7) 4.8 x10^3/uL (1.8-7.7) Lymphocytes # (Auto) 5.3 x10^3/uL (1.0-4.8) 3.2 x10^3/uL (1.0-4.8) Monocytes # (Auto) 0.6 x10^3/uL (0.0-1.1) 0.6 x10^3/uL (0.0-1.1) Eosinophils # (Auto) 0.3 x10^3/uL (0.0-0.7) 0.2 x10^3/uL (0.0-0.7) Basophils # (Auto) 0.1 x10^3/uL (0.0-0.2) 0.0 x10^3/uL (0.0-0.2) Prothrombin Time 12.5 SEC (11.7-14.0) Prothromb Time International Ratio 1.0 (0.8-1.1) Activated Partial Thromboplast Time 30 SEC (24-38) Sodium Level 142 mmol/L (136-145) 143 mmol/L (136-145) Potassium Level 3.8 mmol/L (3.5-5.1) 3.6 mmol/L (3.5-5.1) Chloride Level 106 mmol/L (98-107) 107 mmol/L (98-107) Carbon Dioxide Level 25 mmol/L (21-32) 27 mmol/L (21-32) Anion Gap 11 (6-14) 9 (6-14) Blood Urea Nitrogen 13 mg/dL (7-20) 12 mg/dL (7-20) Creatinine 0.7 mg/dL (0.6-1.0) 0.6 mg/dL (0.6-1.0) Estimated GFR (Cockcroft-Gault) 82.3 98.3 Glucose Level 111 mg/dL (70-99) 110 mg/dL (70-99) Calcium Level 8.4 mg/dL (8.5-10.1) 8.9 mg/dL (8.5-10.1) Troponin I Quantitative < 0.017 ng/mL (0.000-0.055) Glucose (Fingerstick) 118 mg/dL (70-99) BUN/Creatinine Ratio 20 (6-20) Total Bilirubin 0.6 mg/dL (0.2-1.0) Aspartate Amino Transf (AST/SGOT) 15 U/L (15-37) Alanine Aminotransferase (ALT/SGPT) 11 U/L (14-59) Alkaline Phosphatase 78 U/L (46-116) Total Protein 7.2 g/dL (6.4-8.2) Albumin 2.8 g/dL (3.4-5.0) Albumin/Globulin Ratio 0.6 (1.0-1.7) Triglycerides Level 132 mg/dL (0-150) Cholesterol Level 189 mg/dL (0-200) LDL Cholesterol, Calculated 128 mg/dL (0-100) VLDL Cholesterol, Calculated 26 mg/dL (0-40) Non-HDL Cholesterol Calculated 154 mg/dL (0-129) HDL Cholesterol 35 mg/dL (40-60) Cholesterol/HDL Ratio 5.4 Assessment/Plan Assessment/Plan This patient is 70-year-old woman with past medical history of multiple medical problems who presented to emergency room with acute onset of symptoms patient was having left facial droop, difficulty speaking, weakness on left side of the body. Patient presented to emergency room acute fashion. Patient was within the window for IV t-PA. Patient did not have any contraindications for IV t-PA. They accepted risk and benefit for IV t-PA. Patient patient received IV t-PA Patient received IV t-PA. Patient had improvement in symptoms. Patient was admitted to ICU for further workup, close monitoring under post TPA protocol. Hypertension continue treat and monitor. Hyperlipidemia on statin. Check 2-D echo Patient had a CTA head and neck did not show any evidence of large vessel occlusion. No evidence of acute hemorrhage PT OT speech evaluation. Continue close monitoring, further workup. Plan discussed at length Thank you for allowing me to take part in this patient's care. Please not hesitate to contact me with questions. Transcribed using dictation device. The dictation could contain irregularities inherent in the voice to text conversion software, which may not be detected during the document review process. Please contact our office in case of any confusion or for any clarification, as needed. RASHAAD CANO MD Jul 31, 2020 15:07
--- NOTE | 2020-07-31 20:00 | NUR ---
Pt transferred to room 244 with all belongings. Son at bedside at time of transfer. Report called to [facility].
[2020-07-31] MEDS: ATORVASTATIN CALCIUM 40 MG TABLET. PO SCH (20:53)
[2020-08-01] VITALS (8 sets, daily range): BP systolic 89–111; BP diastolic 48–64
[2020-08-01 03:38] LABS: BILIRUBIN,URINE NEGATIVE (NEG); CLARITY,URINE CLEAR; COLOR,URINE AMBER; NITRITE,URINE NEGATIVE (NEG); PH,URINE 5.5 (<5.0-8.0); PROTEIN,URINE NEGATIVE (NEG-TRACE); UROBILINOGEN,URINE 0.2 mg/dL (0.2 mg/dL)
[2020-08-01 03:45] LABS: BACTERIA,URINE FEW /HPF (0-FEW)
[2020-08-01 07:51] LABS: CALCIUM 8.8 mg/dL (8.5-10.1); CREATININE 0.6 mg/dL (0.6-1.0); GFR 98.3; POTASSIUM 3.7 mmol/L (3.5-5.1)
[2020-08-01] MEDS: CETIRIZINE HCL 10 MG TABLET. PO SCH (08:24)
[2020-08-01] MEDS: DOXYCYCLINE HYCLATE 100 MG TABLET PO SCH ×2 (08:24→21:11)
[2020-08-01] MEDS: PANTOPRAZOLE 40 MG TABLET.DR. PO SCH (08:24)
[2020-08-01] MEDS ORDERED: ACETAMINOPHEN 325 MG TABLET. PO PRN (08:30)
[2020-08-01] MEDS: amLODIPine BESYLATE 5 MG TABLET PO SCH (09:00)
--- NOTE | 2020-08-01 10:10 | PDOC ---
PROGRESS NOTES Date of Service DATE: 08/01/20 TIME: 10:06 Assessment Right hemispheric stroke, status post alteplase on 07/30. Negative head CT and CT angiogram Hypertension, hyperlipidemia on statin Plan Await brain MRI Await echocardiogram Rehabilitation modalities Start aspirin if MRI negative for bleed Continue statin Likely will need inpatient rehab Subjective No complaints Objective Vital Signs Date Time Temp Pulse Resp B/P (MAP) Pulse Ox O2 Delivery O2 Flow Rate FiO2 08/01/20 07:00 98.1 82 20 99/64 (76) 93 Nasal Cannula 3.0 98.1 Intake and Output 08/01/20 07:00 Intake Total 100 ml Output Total 750 ml Balance -650 ml Intake Oral 100 ml Output Urine Total 750 ml # Voids 5 # Bowel Movements 2 PHYSICAL EXAM Alert. Oriented to time, place and person. PERRL. EOMI. CN: Left central facial weakness Muscle tone: normal. Muscle strength: 3/5 left hemiparesis DTR: 1+ Plantar reflex: Flexor Gait: not examined in bed. Sensory exam: no abnormal findings. No cerebellar signs elicited. Review of Relevant I have reviewed the following items charan (where applicable) has been applied. Labs Laboratory Tests Test 07/30/20 18:52 07/30/20 19:17 07/30/20 19:18 07/31/20 05:00 White Blood Count 11.3 x10^3/uL (4.0-11.0) 8.9 x10^3/uL (4.0-11.0) Red Blood Count 4.51 x10^6/uL (3.50-5.40) 4.39 x10^6/uL (3.50-5.40) Hemoglobin 14.1 g/dL (12.0-15.5) 13.8 g/dL (12.0-15.5) Hematocrit 42.2 % (36.0-47.0) 41.2 % (36.0-47.0) Mean Corpuscular Volume 94 fL (79-100) 94 fL (79-100) Mean Corpuscular Hemoglobin 31 pg (25-35) 31 pg (25-35) Mean Corpuscular Hemoglobin Concent 34 g/dL (31-37) 33 g/dL (31-37) Red Cell Distribution Width 14.2 % (11.5-14.5) 14.2 % (11.5-14.5) Platelet Count 231 x10^3/uL (140-400) 212 x10^3/uL (140-400) Neutrophils (%) (Auto) 44 % (31-73) 54 % (31-73) Lymphocytes (%) (Auto) 47 % (24-48) 36 % (24-48) Monocytes (%) (Auto) 6 % (0-9) 6 % (0-9) Eosinophils (%) (Auto) 3 % (0-3) 3 % (0-3) Basophils (%) (Auto) 1 % (0-3) 0 % (0-3) Neutrophils # (Auto) 5.0 x10^3/uL (1.8-7.7) 4.8 x10^3/uL (1.8-7.7) Lymphocytes # (Auto) 5.3 x10^3/uL (1.0-4.8) 3.2 x10^3/uL (1.0-4.8) Monocytes # (Auto) 0.6 x10^3/uL (0.0-1.1) 0.6 x10^3/uL (0.0-1.1) Eosinophils # (Auto) 0.3 x10^3/uL (0.0-0.7) 0.2 x10^3/uL (0.0-0.7) Basophils # (Auto) 0.1 x10^3/uL (0.0-0.2) 0.0 x10^3/uL (0.0-0.2) Prothrombin Time 12.5 SEC (11.7-14.0) Prothromb Time International Ratio 1.0 (0.8-1.1) Activated Partial Thromboplast Time 30 SEC (24-38) Sodium Level 142 mmol/L (136-145) 143 mmol/L (136-145) Potassium Level 3.8 mmol/L (3.5-5.1) 3.6 mmol/L (3.5-5.1) Chloride Level 106 mmol/L (98-107) 107 mmol/L (98-107) Carbon Dioxide Level 25 mmol/L (21-32) 27 mmol/L (21-32) Anion Gap 11 (6-14) 9 (6-14) Blood Urea Nitrogen 13 mg/dL (7-20) 12 mg/dL (7-20) Creatinine 0.7 mg/dL (0.6-1.0) 0.6 mg/dL (0.6-1.0) Estimated GFR (Cockcroft-Gault) 82.3 98.3 Glucose Level 111 mg/dL (70-99) 110 mg/dL (70-99) Calcium Level 8.4 mg/dL (8.5-10.1) 8.9 mg/dL (8.5-10.1) Troponin I Quantitative < 0.017 ng/mL (0.000-0.055) Glucose (Fingerstick) 118 mg/dL (70-99) BUN/Creatinine Ratio 20 (6-20) Total Bilirubin 0.6 mg/dL (0.2-1.0) Aspartate Amino Transf (AST/SGOT) 15 U/L (15-37) Alanine Aminotransferase (ALT/SGPT) 11 U/L (14-59) Alkaline Phosphatase 78 U/L (46-116) Total Protein 7.2 g/dL (6.4-8.2) Albumin 2.8 g/dL (3.4-5.0) Albumin/Globulin Ratio 0.6 (1.0-1.7) Triglycerides Level 132 mg/dL (0-150) Cholesterol Level 189 mg/dL (0-200) LDL Cholesterol, Calculated 128 mg/dL (0-100) VLDL Cholesterol, Calculated 26 mg/dL (0-40) Non-HDL Cholesterol Calculated 154 mg/dL (0-129) HDL Cholesterol 35 mg/dL (40-60) Cholesterol/HDL Ratio 5.4 Test 08/01/20 02:25 08/01/20 04:35 Urine Collection Type Unknown Urine Color Huyen Urine Clarity Clear Urine pH 5.5 (<5.0-8.0) Urine Specific Tyler 1.025 (1.000-1.030) Urine Protein Negative mg/dL (NEG-TRACE) Urine Glucose (UA) Negative mg/dL (NEG) Urine Ketones (Stick) Trace mg/dL (NEG) Urine Blood Negative (NEG) Urine Nitrite Negative (NEG) Urine Bilirubin Negative (NEG) Urine Urobilinogen Dipstick 0.2 mg/dL (0.2 mg/dL) Urine Leukocyte Esterase Small (NEG) Urine RBC 3-5 /HPF (0-2) Urine WBC 5-10 /HPF (0-4) Urine Squamous Epithelial Cells Many /LPF Urine Bacteria Few /HPF (0-FEW) Urine Mucus Marked /LPF Sodium Level 144 mmol/L (136-145) Potassium Level 3.7 mmol/L (3.5-5.1) Chloride Level 106 mmol/L (98-107) Carbon Dioxide Level 29 mmol/L (21-32) Anion Gap 9 (6-14) Blood Urea Nitrogen 10 mg/dL (7-20) Creatinine 0.6 mg/dL (0.6-1.0) Estimated GFR (Cockcroft-Gault) 98.3 Glucose Level 101 mg/dL (70-99) Calcium Level 8.8 mg/dL (8.5-10.1) Laboratory Tests Test 08/01/20 02:25 08/01/20 04:35 Urine Collection Type Unknown Urine Color Huyen Urine Clarity Clear Urine pH 5.5 (<5.0-8.0) Urine Specific Tyler 1.025 (1.000-1.030) Urine Protein Negative mg/dL (NEG-TRACE) Urine Glucose (UA) Negative mg/dL (NEG) Urine Ketones (Stick) Trace mg/dL (NEG) Urine Blood Negative (NEG) Urine Nitrite Negative (NEG) Urine Bilirubin Negative (NEG) Urine Urobilinogen Dipstick 0.2 mg/dL (0.2 mg/dL) Urine Leukocyte Esterase Small (NEG) Urine RBC 3-5 /HPF (0-2) Urine WBC 5-10 /HPF (0-4) Urine Squamous Epithelial Cells Many /LPF Urine Bacteria Few /HPF (0-FEW) Urine Mucus Marked /LPF Sodium Level 144 mmol/L (136-145) Potassium Level 3.7 mmol/L (3.5-5.1) Chloride Level 106 mmol/L (98-107) Carbon Dioxide Level 29 mmol/L (21-32) Anion Gap 9 (6-14) Blood Urea Nitrogen 10 mg/dL (7-20) Creatinine 0.6 mg/dL (0.6-1.0) Estimated GFR (Cockcroft-Gault) 98.3 Glucose Level 101 mg/dL (70-99) Calcium Level 8.8 mg/dL (8.5-10.1) Medications Current Medications Alteplase, Recombinant 6 ml @ 360 mls/hr 1X ONCE IV Last administered on 07/30/20at 19:23; Start 07/30/20 at 19:00; Stop 07/30/20 at 19:05; Status DC Alteplase, Recombinant 55 ml @ 55 mls/hr 1X ONCE IV Last administered on 07/30/20at 19:26; Start 07/30/20 at 19:00; Stop 07/30/20 at 19:59; Status DC Sodium Chloride 50 ml @ 50 mls/hr 1X ONCE IV Last administered on 07/30/20at 20:26; Start 07/30/20 at 19:00; Stop 07/30/20 at 19:59; Status DC Labetalol HCl (Normodyne Iv Push) 10 mg PRN Q10MIN PRN IVP HYPERTENSION; Start 07/30/20 at 19:00 Nicardipine HCl 50 mg/Sodium Chloride 250 ml @ 25 mls/hr CONT PRN PRN IV HYPERTENSION; Start 07/30/20 at 19:00; Stop 07/31/20 at 20:42; Status DC Iohexol (Omnipaque 350 Mg/ml) 75 ml 1X ONCE IV Last administered on 07/30/20at 20:25; Start 07/30/20 at 19:45; Stop 07/30/20 at 19:46; Status DC Ondansetron HCl (Zofran) 4 mg PRN Q8HRS PRN IV NAUSEA/VOMITING; Start 07/30/20 at 21:00; Stop 07/31/20 at 20:59; Status DC Morphine Sulfate (Morphine Sulfate) 4 mg PRN Q2HR PRN IV PAIN; Start 07/30/20 at 21:00; Stop 07/31/20 at 20:59; Status DC Albuterol Sulfate (Ventolin Neb Soln) 2.5 mg PRN Q6HRS PRN INH SHORTNESS OF BREATH; Start 07/31/20 at 10:45 Amlodipine Besylate (Norvasc) 5 mg DAILY PO ; Start 08/01/20 at 09:00 Cetirizine HCl (ZyrTEC) 10 mg DAILY PO Last administered on 08/01/20at 08:24; Start 08/01/20 at 09:00 Pantoprazole Sodium (Protonix) 40 mg DAILYAC PO Last administered on 08/01/20at 08:24; Start 08/01/20 at 07:30 Atorvastatin Calcium (Lipitor) 40 mg QHS PO Last administered on 07/31/20at 20:53; Start 07/31/20 at 21:00 Doxycycline Hyclate (Vibra-Tab) 100 mg BID PO Last administered on 08/01/20at 08:24; Start 08/01/20 at 09:00 Acetaminophen (Tylenol) 650 mg PRN Q6HRS PRN PO MILD PAIN / TEMP > 100.3'F Last administered on 08/01/20at 09:18; Start 08/01/20 at 08:30 Active Scripts Active Reported Proair Hfa (Albuterol Sulfate) 8.5 Gm Hfa.aer.ad 1 Puff INH PRN Q6HRS PRN Omeprazole 40 Mg Capsule.dr 1 Cap PO DAILY Amlodipine Besylate 5 Mg Tablet 5 Mg PO DAILY Doxycycline Hyclate 100 Mg Capsule 1 Cap PO BID Zyrtec (Cetirizine Hcl) 10 Mg Tablet 1 Tab PO DAILY Vitals/I & O Vital Sign - Last 24 Hours 07/31/20 07/31/20 07/31/20 07/31/20 11:00 11:37 12:00 13:00 Temp 98.2 98.2 Pulse 73 73 77 Resp 18 B/P (MAP) 118/63 (81) 119/59 (79) 132/67 (88) Pulse Ox 95 97 94 O2 Delivery Nasal Cannula Nasal Cannula Nasal Cannula Nasal Cannula O2 Flow Rate 4.0 3.0 3.0 3.0 07/31/20 07/31/20 07/31/20 07/31/20 14:00 15:00 16:00 16:00 Temp 98.2 98.2 Pulse 88 72 70 Resp 18 18 20 B/P (MAP) 117/50 (72) 124/54 (77) 134/57 (82) Pulse Ox 92 97 96 O2 Delivery Nasal Cannula Nasal Cannula Nasal Cannula Nasal Cannula O2 Flow Rate 3.0 3.0 3.0 3.0 07/31/20 07/31/20 07/31/20 07/31/20 17:00 18:00 19:00 20:00 Temp 97.8 97.8 Pulse 78 85 94 87 Resp 24 16 B/P (MAP) 118/59 (78) 141/63 (89) 117/61 (79) 143/65 (91) Pulse Ox 95 95 92 95 O2 Delivery Nasal Cannula Nasal Cannula Nasal Cannula Nasal Cannula O2 Flow Rate 3.0 3.0 3.0 3.0 07/31/20 07/31/20 08/01/20 08/01/20 20:15 23:21 02:30 02:32 Temp 98.0 97.8 98.0 97.8 Pulse 83 84 82 Resp 18 16 B/P (MAP) 127/57 (80) 89/60 (70) 106/63 (77) Pulse Ox 99 93 O2 Delivery Nasal Cannula Nasal Cannula Nasal Cannula O2 Flow Rate 3.0 3.0 3.0 08/01/20 07:00 Temp 98.1 98.1 Pulse 82 Resp 20 B/P (MAP) 99/64 (76) Pulse Ox 93 O2 Delivery Nasal Cannula O2 Flow Rate 3.0 Intake and Output 07/31/20 07/31/20 08/01/20 15:00 23:00 07:00 Intake Total 100 ml 0 ml Output Total 450 ml 300 ml Balance -350 ml -300 ml Justicifation of Admission Dx: Justifications for Admission: Justification of Admission Dx: Yes Stroke - Ischemic: Stroke-Ischemic CHRISTAL BAGLEY MD Aug 01, 2020 10:10
--- NOTE | 2020-08-01 11:27 | CARD ---
MR#: [id number] Date of Study: 08/01/2020 Ordering Physician: RASHAAD CANO, Referring Physician: RASHAAD CANO Tech: Anna Fajardo RDCS APPROVED REPORT EXAM: Two-dimensional and M-mode echocardiogram with Doppler and color Doppler. Other Information Quality : Good Technically limited study due to body habitus. INDICATION CVA/TIA Echo Enhancing Agent Agent/Amount Used: Agitated Saline 8mL 2D DIMENSIONS RVDd2.3 (2.9-3.5cm)Left Atrium(2D)2.1 (1.6-4.0cm) IVSd0.9 (0.7-1.1cm)Aortic Root(2D)2.9 (2.0-3.7cm) LVDd4.4 (3.9-5.9cm)LVOT Diameter1.8 (1.8-2.4cm) PWd0.7 (0.7-1.1cm)LVDs3.6 (2.5-4.0cm) FS (%) 30.0 %SV31.1 ml LVEF(%)60.0 (>50%) Aortic Valve AoV Peak Marvin.119.8cm/sAoV VTI22.2cm AO Peak GR.5.7mmHgLVOT Peak Marvin.96.6cm/s LVOT VTI 17.44cmAO Mean GR.3mmHg JANET (VMAX)1.01jp8KTI (VTI)2.01cm2 AI P 1/2 Btha477qs Mitral Valve MV E Hcmxcgov88.8cm/sMV DECEL NUCQ478mh MV A Tithshyl55.5cm/sMV DWA67mu E/A Ratio0.8MVA (PHT)3.33cm2 TDI E/Lateral E'8.6E/Medial E'11.0 Tricuspid Valve TR P. Zyotuzrl880qr/sRAP RXIGOOJQ6neCa TR Peak Gr.57odCePHVX77csTb Pulmonary Vein S1 Scmyvdui16.5cm/sD2 Urepebel52.4cm/s LEFT VENTRICLE The left ventricle is normal size. There is normal left ventricular wall thickness. The left ventricu lar systolic function is normal and the ejection fraction is within normal range. EF 55% There is nor mal LV segmental wall motion. Transmitral Doppler flow pattern is Grade I-abnormal relaxation pattern . RIGHT VENTRICLE The right ventricle is normal size. The right ventricular systolic function is normal. ATRIA The left atrium size is normal. The right atrium size is normal. The interatrial septum is intact wit h no evidence for an atrial septal defect or patent foramen ovale as noted on 2-D or Doppler imaging. Agitated saline study showed a trivial right to left shunt. AORTIC VALVE The aortic valve is calcified but opens well. Doppler and Color Flow revealed mild to moderate aortic regurgitation. There is no significant aortic valvular stenosis. MITRAL VALVE The mitral valve is calcified but opens well. Mitral annular calcification is mild. There is no evide nce of mitral valve prolapse. There is no mitral valve stenosis. Doppler and Color Flow revealed no m itral valve regurgitation noted. TRICUSPID VALVE The tricuspid valve is normal in structure and function. Doppler and Color Flow revealed trace to mil d tricuspid regurgitation. There is mild pulmonary hypertension. The PA pressure was estimated at 39 mmHg. There is no tricuspid valve stenosis. PULMONIC VALVE The pulmonic valve is not well visualized. Doppler and Color Flow revealed no pulmonic valvular regur gitation. There is no pulmonic valvular stenosis. GREAT VESSELS The aortic root is normal in size. The ascending aorta is not well seen. The IVC is normal in size an d collapses >50% with inspiration. PERICARDIAL EFFUSION There is no evidence of significant pericardial effusion. Critical Notification Critical Value: No <Conclusion> The left ventricular systolic function is normal and the ejection fraction is within normal range. EF 55% There is normal LV segmental wall motion. The interatrial septum is intact with no evidence for an atrial septal defect or patent foramen ovale as noted on 2-D or Doppler imaging. Agitated saline study showed a trivial right to left shunt. Doppler and Color Flow revealed mild to moderate aortic regurgitation. Doppler and Color Flow revealed trace to mild tricuspid regurgitation. There is mild pulmonary hypert ension. The PA pressure was estimated at 39 mmHg. Signed by : Willie Mars, Electronically Approved : 08/01/2020 11:26:40
--- NOTE | 2020-08-01 12:44 | PDOC ---
[facility] PROGRESS NOTE Date of Service DOS: DATE: 08/01/20 TIME: 12:41 History of Present Illness History of Present Illness 08/01 Patient seen and examined. Discussed with nursing and case specialist. Discussed MRI to be performed today. History of Present Illness 70 year old female with reported history of TBI, hypertension and GERD presented emergency department for new onset of dysarthria and left-sided facial droop, family called 911 . Patient states that at 1600 4-17 she had a new onset of difficulty speaking stating she was unable to speak also noted new onset left-sided facial droop and some weakness in the left upper extremity. Denies any vision changes, nausea, vomiting, SOME weakness swallow left gip remains mildly weak today given TPA in ER , admitted to icu after neurology consult ct head c/w Mild small vessel ischemic change, age indeterminate LDL cholesterol 128 hgb 13.8 currently on 3 liters nc o2 , diastolic htn in er NOTED Mild plaque at the origin of the internal carotid arteries bilaterally without significant stenosis. on cta head and neck on dysphagia I diet w/ honey thick liquids, swallow precautions, ST f/u for d ysphagia. 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 Vitals/I&O Vitals/I&O: Vital Signs Date Time Temp Pulse Resp B/P (MAP) Pulse Ox O2 Delivery O2 Flow Rate FiO2 08/01/20 11:00 97.9 79 18 96/48 (64) 97 Nasal Cannula 3.0 97.9 I & O 07/31/20 07/31/20 08/01/20 15:00 23:00 07:00 Intake Total 100 ml 0 ml Output Total 450 ml 300 ml Balance -350 ml -300 ml Physical Exam General: Alert, Oriented X3, Cooperative, No acute distress Heart: Regular rate Lungs: Clear Abdomen: Soft Extremities: No cyanosis, No edema Skin: No significant lesion Labs Labs: Laboratory Tests Test 08/01/20 02:25 08/01/20 04:35 Urine Collection Type Unknown Urine Color Huyen Urine Clarity Clear Urine pH 5.5 (<5.0-8.0) Urine Specific Joseph 1.025 (1.000-1.030) Urine Protein Negative mg/dL (NEG-TRACE) Urine Glucose (UA) Negative mg/dL (NEG) Urine Ketones (Stick) Trace mg/dL (NEG) Urine Blood Negative (NEG) Urine Nitrite Negative (NEG) Urine Bilirubin Negative (NEG) Urine Urobilinogen Dipstick 0.2 mg/dL (0.2 mg/dL) Urine Leukocyte Esterase Small (NEG) Urine RBC 3-5 /HPF (0-2) Urine WBC 5-10 /HPF (0-4) Urine Squamous Epithelial Cells Many /LPF Urine Bacteria Few /HPF (0-FEW) Urine Mucus Marked /LPF Sodium Level 144 mmol/L (136-145) Potassium Level 3.7 mmol/L (3.5-5.1) Chloride Level 106 mmol/L (98-107) Carbon Dioxide Level 29 mmol/L (21-32) Anion Gap 9 (6-14) Blood Urea Nitrogen 10 mg/dL (7-20) Creatinine 0.6 mg/dL (0.6-1.0) Estimated GFR (Cockcroft-Gault) 98.3 Glucose Level 101 mg/dL (70-99) Calcium Level 8.8 mg/dL (8.5-10.1) Assessment and Plan Assessmemt and Plan Assessment Right hemispheric stroke Dysarthria Plan MRI today Echo today Start aspirin if MRI negative for bleed; per Dr. Rose DVT Prophylaxis Cardiac monitoriing Discharge to home if okay with neurology Goals of Care: Advance Care Planning: Total time spent [id number] with patient greater than 16 minutes in discussion with goals of care, comfort care, end-of-life care, pain management, code status Comment Review of Relevant I have reviewed the following items charan (where applicable) has been applied. Medications: Current Medications Medications (Trade) Dose Ordered Sig/Carlos Route PRN Reason Start Time Stop Time Status Last Admin Dose Admin Cetirizine HCl (ZyrTEC) 10 mg DAILY PO 08/01/20 09:00 08/01/20 08:24 Pantoprazole Sodium (Protonix) 40 mg DAILYAC PO 08/01/20 07:30 08/01/20 08:24 Atorvastatin Calcium (Lipitor) 40 mg QHS PO 07/31/20 21:00 07/31/20 20:53 Doxycycline Hyclate (Vibra-Tab) 100 mg BID PO 08/01/20 09:00 08/01/20 08:24 Acetaminophen (Tylenol) 650 mg PRN Q6HRS PRN PO MILD PAIN / TEMP > 100.3'F 08/01/20 08:30 08/01/20 09:18 Justifications for Admission Other Justification STEVEN HURST III DO Aug 01, 2020 12:44
--- NOTE | 2020-08-01 14:17 | RAD ---
MRI of the brain without contrast 08/01/2020 Clinical History: Left-sided facial droop.. Technique: Unenhanced T1-weighted sagittal and axial, T2-weighted axial and coronal and FLAIR, suscep tibility weighted and diffusion-weighted axial images of the brain were obtained. Findings: There is an is made to patient's CT scan of the head dated 07/31/2020. There is generalized parenchymal atrophy. Patchy, confluent and multiple small focal areas of abnorma lly increased signal intensity are seen within the periventricular and subcortical white matter of rachna th cerebral hemispheres on the FLAIR and T2-weighted images consistent with areas of small vessel isc hemic disease. An area of restricted diffusion is seen involving involving the cortex of the right frontoparietal lo be. This is consistent with an area of acute infarction. This measures 3.5 cm in greatest diameter. T here is surrounding edema without significant mass effect. No additional acute parenchymal abnormality is seen. No extra-axial fluid collection is noted. There is no MRI evidence of intraparenchymal hemorrhage. Mild mucosal thickening is seen scattered throughout the paranasal sinuses. There are small bilateral mastoid effusions. Normal flow voids are seen within the major vascular structures surrounding the b rain parenchyma. IMPRESSION: An area of acute infarction is seen involving the cortex of the right frontoparietal lobe . There is mild surrounding edema without significant mass effect. This finding was discussed with the patient's nurse. FOR INTERNAL CODING PURPOSES RESULT CODE: (C) Electronically signed by: Juanito Gupta MD (08/01/2020 2:14 PM) [id number]
--- NOTE | 2020-08-01 14:28 | NUR ---
SS following for discharge planning. SS reviewed pt chart and discussed with pt RN. Pt is from home with family and is currently requiring oxygen at three liters nasal canula. Pt has home oxygen at two liters PRN HS. Pt had TPA. Pt having MRI and ECHO today. Per RN, MRI was positive. Pt on PO diet. PT/OT recommending home with home healthcare. SS will continue to follow for discharge planning.
[2020-08-01] MEDS: ASPIRIN 325 MG TABLET PO SCH (15:34)
[2020-08-01] MEDS: LACTOBACILLUS RHAMNOSUS GG 1 CAPSULE. PO SCH (21:11)
[2020-08-01] MEDS: ATORVASTATIN CALCIUM 40 MG TABLET. PO SCH (21:11)
[2020-08-02 03:15] VITALS: BP 95/56
[2020-08-02 07:00] VITALS: BP 99/57
[2020-08-02] MEDS: PANTOPRAZOLE 40 MG TABLET.DR. PO SCH (08:40)
[2020-08-02] MEDS: CETIRIZINE HCL 10 MG TABLET. PO SCH (08:40)
[2020-08-02] MEDS: LACTOBACILLUS RHAMNOSUS GG 1 CAPSULE. PO SCH (08:40)
[2020-08-02] MEDS: ASPIRIN 325 MG TABLET PO SCH (08:40)
[2020-08-02] MEDS: DOXYCYCLINE HYCLATE 100 MG TABLET PO SCH (08:40)
[2020-08-02] MEDS: amLODIPine BESYLATE 5 MG TABLET PO SCH (08:42)
[2020-08-02] MEDS ORDERED: ATOR40TA59 PO (10:09)
[2020-08-02] MEDS ORDERED: ASPI325T8 PO (10:09)
--- NOTE | 2020-08-02 10:10 | SNU/HH DC ---
DISCHARGE WITH HOME HEALTH DISCHARGE INFORMATION: Condition on Discharge: Stable CODE STATUS: Code Status: Full HOME HEALTH: Face to Face: I certify this patient is under my care and that I, or a nurse practitioner or physician's assistant secretary working with me, had a face to face encounter that meets the physician face to face encounter requirements with this patient on []. Medical Complications: CVA Mcc For: Assess & Educate Safety RN For Eval/Treatment: Yes Physical Therapy For: Evalulation/Treatment Occupational Therapy For: Evaluation/Treatment Speech Language Pathology For: Evaluation/Treatment Home Health Aide For: Self-care Pt Meets Homebound Status: Poor coordination w/ amb. POST DISCHARGE ORDERS: DIET AFTER DISCHARGE: Cardiac CERTIFICATION STATEMENT: Certification Statement: Certification Statement: Based on the above finding, I certify that this patient is confined to the home and needs intermittent shelter care, physical therapy and/or speech therapy, or continues to need occupational therapy.~ This patient is under my care, and I have initiated the establishment of the plan of care.~ This patient will be followed by myself or a community physician who will periodically review the plan of care. Home Meds Active Scripts Aspirin (ASPIRIN) 325 Mg Tablet, 325 MG PO DAILYWBKFT for cva for 30 Days, #30 TAB Prov:CASTLE,NIAL K III DO 08/02/20 Atorvastatin Calcium (ATORVASTATIN CALCIUM) 40 Mg Tablet, 40 MG PO QHS for cva for 30 Days, #30 TAB Prov:CASTLE,NIAL K III DO 08/02/20 Reported Medications Albuterol Sulfate (Proair Hfa) 8.5 Gm Hfa.aer.ad, 1 PUFF INH PRN Q6HRS PRN for SHORTNESS OF BREATH, EACH 07/31/20 Omeprazole (OMEPRAZOLE) 40 Mg Capsule.dr, 1 CAP PO DAILY for GERD, #30 CAP 3 Refills 07/31/20 Doxycycline Hyclate (DOXYCYCLINE HYCLATE) 100 Mg Capsule, 1 CAP PO BID for i nfection, #14 CAP 07/31/20 Cetirizine Hcl (ZYRTEC) 10 Mg Tablet, 1 TAB PO DAILY for allergies, #30 TAB 2 Re fills 07/31/20 Discontinued Reported Medications Amlodipine Besylate (AMLODIPINE BESYLATE) 5 Mg Tablet, 5 MG PO DAILY for HTN, TAB 07/31/20 CASTLE,NIAL K III DO Aug 02, 2020 10:10
--- NOTE | 2020-08-02 10:38 | PDOC ---
PROGRESS NOTES Date of Service DATE: 08/02/20 TIME: 10:35 Assessment Stroke in cortex of the right frontoparietal lobe, status post alteplase on 07/30. Negative head CT and CT angiogram Trivial right to left shunt Hypertension, hyperlipidemia on statin Plan Aspirin Continue statin Cardiology consult regarding abnormal echocardiogram, in light of the fact that this was most likely an embolic stroke. PT/OT recommends outpatient rehab Subjective None Objective Vital Signs Date Time Temp Pulse Resp B/P (MAP) Pulse Ox O2 Delivery O2 Flow Rate FiO2 08/02/20 07:00 98.4 81 18 99/57 (71) 92 Nasal Cannula 3.0 98.4 Intake and Output 08/02/20 07:00 Intake Total 745 ml Output Total 250 ml Balance 495 ml Intake Oral 745 ml Output Urine Total 250 ml # Voids 1 PHYSICAL EXAM Alert. Oriented to time, place and person. PERRL. EOMI. CN: Left central facial weakness Muscle tone: normal. Muscle strength: 3/5 left hemiparesis DTR: 1+ Plantar reflex: Flexor Gait: not examined in bed. Sensory exam: no abnormal findings. No cerebellar signs elicited. Review of Relevant I have reviewed the following items charan (where applicable) has been applied. Labs Laboratory Tests Test 08/01/20 02:25 08/01/20 04:35 Urine Collection Type Unknown Urine Color Huyen Urine Clarity Clear Urine pH 5.5 (<5.0-8.0) Urine Specific Trevor 1.025 (1.000-1.030) Urine Protein Negative mg/dL (NEG-TRACE) Urine Glucose (UA) Negative mg/dL (NEG) Urine Ketones (Stick) Trace mg/dL (NEG) Urine Blood Negative (NEG) Urine Nitrite Negative (NEG) Urine Bilirubin Negative (NEG) Urine Urobilinogen Dipstick 0.2 mg/dL (0.2 mg/dL) Urine Leukocyte Esterase Small (NEG) Urine RBC 3-5 /HPF (0-2) Urine WBC 5-10 /HPF (0-4) Urine Squamous Epithelial Cells Many /LPF Urine Bacteria Few /HPF (0-FEW) Urine Mucus Marked /LPF Sodium Level 144 mmol/L (136-145) Potassium Level 3.7 mmol/L (3.5-5.1) Chloride Level 106 mmol/L (98-107) Carbon Dioxide Level 29 mmol/L (21-32) Anion Gap 9 (6-14) Blood Urea Nitrogen 10 mg/dL (7-20) Creatinine 0.6 mg/dL (0.6-1.0) Estimated GFR (Cockcroft-Gault) 98.3 Glucose Level 101 mg/dL (70-99) Calcium Level 8.8 mg/dL (8.5-10.1) Microbiology 08/01/20 Urine Culture - Final, Complete Medications Current Medications Alteplase, Recombinant 6 ml @ 360 mls/hr 1X ONCE IV Last administered on 07/30/20at 19:23; Start 07/30/20 at 19:00; Stop 07/30/20 at 19:05; Status DC Alteplase, Recombinant 55 ml @ 55 mls/hr 1X ONCE IV Last administered on 07/30/20at 19:26; Start 07/30/20 at 19:00; Stop 07/30/20 at 19:59; Status DC Sodium Chloride 50 ml @ 50 mls/hr 1X ONCE IV Last administered on 07/30/20at 20:26; Start 07/30/20 at 19:00; Stop 07/30/20 at 19:59; Status DC Labetalol HCl (Normodyne Iv Push) 10 mg PRN Q10MIN PRN IVP HYPERTENSION; Start 07/30/20 at 19:00 Nicardipine HCl 50 mg/Sodium Chloride 250 ml @ 25 mls/hr CONT PRN PRN IV HYPERTENSION; Start 07/30/20 at 19:00; Stop 07/31/20 at 20:42; Status DC Iohexol (Omnipaque 350 Mg/ml) 75 ml 1X ONCE IV Last administered on 07/30/20at 20:25; Start 07/30/20 at 19:45; Stop 07/30/20 at 19:46; Status DC Ondansetron HCl (Zofran) 4 mg PRN Q8HRS PRN IV NAUSEA/VOMITING; Start 07/30/20 at 21:00; Stop 07/31/20 at 20:59; Status DC Morphine Sulfate (Morphine Sulfate) 4 mg PRN Q2HR PRN IV PAIN; Start 07/30/20 at 21:00; Stop 07/31/20 at 20:59; Status DC Albuterol Sulfate (Ventolin Neb Soln) 2.5 mg PRN Q6HRS PRN INH SHORTNESS OF BREATH; Start 07/31/20 at 10:45 Amlodipine Besylate (Norvasc) 5 mg DAILY PO ; Start 08/01/20 at 09:00 Cetirizine HCl (ZyrTEC) 10 mg DAILY PO Last administered on 08/02/20at 08:40; Start 08/01/20 at 09:00 Pantoprazole Sodium (Protonix) 40 mg DAILYAC PO Last administered on 08/02/20at 08:40; Start 08/01/20 at 07:30 Atorvastatin Calcium (Lipitor) 40 mg QHS PO Last administered on 08/01/20at 21:11; Start 07/31/20 at 21:00 Doxycycline Hyclate (Vibra-Tab) 100 mg BID PO Last administered on 08/02/20at 08:40; Start 08/01/20 at 09:00 Acetaminophen (Tylenol) 650 mg PRN Q6HRS PRN PO MILD PAIN / TEMP > 100.3'F Last administered on 08/01/20at 09:18; Start 08/01/20 at 08:30 Aspirin (Tamir Aspirin) 325 mg DAILYWBKFT PO Last administered on 08/02/20at 08:40; Start 08/01/20 at 14:45 Lactobacillus Rhamnosus (Culturelle) 1 cap BID PO Last administered on 08/02/20at 08:40; Start 08/01/20 at 21:00 Active Scripts Active Aspirin 325 Mg Tablet 325 Mg PO DAILYWBKFT 30 Days Atorvastatin Calcium 40 Mg Tablet 40 Mg PO QHS 30 Days Reported Proair Hfa (Albuterol Sulfate) 8.5 Gm Hfa.aer.ad 1 Puff INH PRN Q6HRS PRN Omeprazole 40 Mg Capsule.dr 1 Cap PO DAILY Doxycycline Hyclate 100 Mg Capsule 1 Cap PO BID Zyrtec (Cetirizine Hcl) 10 Mg Tablet 1 Tab PO DAILY Vitals/I & O Vital Sign - Last 24 Hours 08/01/20 08/01/20 08/01/20 08/01/20 11:00 15:00 19:00 20:00 Temp 97.9 98.2 98.7 97.9 98.2 98.7 Pulse 79 80 73 Resp 18 18 16 B/P (MAP) 96/48 (64) 100/55 (70) 102/59 (73) Pulse Ox 97 90 96 O2 Delivery Nasal Cannula Nasal Cannula Nasal Cannula Nasal Cannula O2 Flow Rate 3.0 3.0 3.0 3.0 08/01/20 08/02/20 08/02/20 23:39 03:15 07:00 Temp 97.9 98.0 98.4 97.9 98.0 98.4 Pulse 78 75 81 Resp 16 18 18 B/P (MAP) 111/59 (76) 95/56 (69) 99/57 (71) Pulse Ox 100 97 92 O2 Delivery Nasal Cannula Nasal Cannula Nasal Cannula O2 Flow Rate 3.0 3.0 3.0 Intake and Output 08/01/20 08/01/20 08/02/20 15:00 23:00 07:00 Intake Total 565 ml 180 ml 0 ml Output Total 250 ml Balance 565 ml -70 ml 0 ml Images MRI of the brain without contrast 08/01/2020 Clinical History: Left-sided facial droop.. Technique: Unenhanced T1-weighted sagittal and axial, T2-weighted axial and coronal and FLAIR, susceptibility weighted and diffusion-weighted axial images of the brain were obtained. Findings: There is an is made to patient's CT scan of the head dated 07/31/2020. There is generalized parenchymal atrophy. Patchy, confluent and multiple small focal areas of abnormally increased signal intensity are seen within the periven tricular and subcortical white matter of both cerebral hemispheres on the FLAIR and T2-weighted images consistent with areas of small vessel ischemic disease. An area of restricted diffusion is seen involving involving the cortex of the right frontoparietal lobe. This is consistent with an area of acute infarction. This measures 3.5 cm in greatest diameter. There is surrounding edema without significant mass effect. No additional acute parenchymal abnormality is seen. No extra-axial fluid collection is noted. There is no MRI evidence of intraparenchymal hemorrhage. Mild mucosal thickening is seen scattered throughout the paranasal sinuses. There are small bilateral mastoid effusions. Normal flow voids are seen within the major vascular structures surrounding the brain parenchyma. IMPRESSION: An area of acute infarction is seen involving the cortex of the right frontoparietal lobe. There is mild surrounding edema without significant mass effect. This finding was discussed with the patient's nurse. Echocardiogram: LEFT VENTRICLE The left ventricle is normal size. There is normal left ventricular wall thickness. The left ventricular systolic function is normal and the ejection fraction is within normal range. EF 55% There is normal LV segmental wall motion . Transmitral Doppler flow pattern is Grade I-abnormal relaxation pattern. RIGHT VENTRICLE The right ventricle is normal size. The right ventricular systolic function is normal. ATRIA The left atrium size is normal. The right atrium size is normal. The interatrial septum is intact with no evidence for an atrial septal defect or patent foramen ovale as noted on 2-D or Doppler imaging. Agitated saline study showed a trivial right to left shunt. AORTIC VALVE The aortic valve is calcified but opens well. Doppler and Color Flow revealed mild to moderate aortic regurgitation. There is no significant aortic valvular stenosis. MITRAL VALVE The mitral valve is calcified but opens well. Mitral annular calcification is mild. There is no evidence of mitral valve prolapse. There is no mitral valve stenosis. Doppler and Color Flow revealed no mitral valve regurgitation noted. TRICUSPID VALVE The tricuspid valve is normal in structure and function. Doppler and Color Flow revealed trace to mild tricuspid regurgitation. There is mild pulmonary hypertension. The PA pressure was estimated at 39 mmHg. There is no tricuspid valve stenosis. PULMONIC VALVE The pulmonic valve is not well visualized. Doppler and Color Flow revealed no pulmonic valvular regurgitation. There is no pulmonic valvular stenosis. GREAT VESSELS The aortic root is normal in size. The ascending aorta is not well seen. The IVC is normal in size and collapses >50% with inspiration. PERICARDIAL EFFUSION There is no evidence of significant pericardial effusion. Critical Notification Critical Value: No <Conclusion> The left ventricular systolic function is normal and the ejection fraction is within normal range. EF 55% There is normal LV segmental wall motion. The interatrial septum is intact with no evidence for an atrial septal defect or patent foramen ovale as noted on 2-D or Doppler imaging. Agitated saline study showed a trivial right to left shunt. Justicifation of Admission Dx: Justifications for Admission: Justification of Admission Dx: Yes Stroke - Ischemic: Stroke-Ischemic CHRISTAL BAGLEY MD Aug 02, 2020 10:38
[2020-08-02 11:00] VITALS: BP 108/62
--- NOTE | 2020-08-02 12:55 | PDOC ---
[facility] PROGRESS NOTE Date of Service DOS: DATE: 08/02/20 TIME: 12:51 History of Present Illness History of Present Illness 08/03/19 Patient seen and examined. Discussed with nursing and case hardener. MRI revealed right frontoparietal lobe acute infarction with some edema without mass effect Patient lipid labs returned elevated. Discussed necessity to treat with statin with nursing. 08/02/19 Patient seen and examined. Discussed with nursing and case hardener. Discussed MRI to be performed today. History of Present Illness 70 year old female with reported history of TBI, hypertension and GERD presented emergency department for new onset of dysarthria and left-sided facial droop, family called 911 . Patient states that at 1600 4-17 she had a new onset of difficulty speaking stating she was unable to speak also noted new onset left-sided facial droop and some weakness in the left upper extremity. Denies any vision changes, nausea, vomiting, SOME weakness swallow left gip remains mildly weak today given TPA in ER , admitted to icu after neurology consult ct head c/w Mild small vessel ischemic change, age indeterminate LDL cholesterol 128 hgb 13.8 currently on 3 liters nc o2 , diastolic htn in er NOTED Mild plaque at the origin of the internal carotid arteries bilaterally without significant stenosis. on cta head and neck on dysphagia I diet w/ honey thick liquids, swallow precautions, ST f/u for dysphagia. 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 Vitals/I&O Vitals/I&O: Vital Signs Date Time Temp Pulse Resp B/P (MAP) Pulse Ox O2 Delivery O2 Flow Rate FiO2 08/02/20 08:00 Nasal Cannula 2.0 08/02/20 07:00 98.4 81 18 99/57 (71) 92 98.4 I & O 08/01/20 08/01/20 08/02/20 15:00 23:00 07:00 Intake Total 565 ml 180 ml 0 ml Output Total 250 ml Balance 565 ml -70 ml 0 ml Physical Exam General: Alert, Oriented X3, Cooperative, No acute distress Heart: Regular rate Lungs: Clear Abdomen: Soft Extremities: No cyanosis, No edema Skin: No significant lesion Assessment and Plan Assessmemt and Plan Assessment Right frontoparietal lobe acute infarction Hyperlipidemia Dysarthria Plan Discharge to Home health Start aspirin Continue atorvastatin Stop amlodipine Comment Review of Relevant I have reviewed the following items charan (where applicable) has been applied. Medications: Current Medications Medications (Trade) Dose Ordered Sig/Carlos Route PRN Reason Start Time Stop Time Status Last Admin Dose Admin Aspirin (Tamir Aspirin) 325 mg DAILYWBKFT PO 08/01/20 14:45 08/02/20 08:40 Lactobacillus Rhamnosus (Culturelle) 1 cap BID PO 08/01/20 21:00 08/02/20 08:40 Justifications for Admission Other Justification STEVEN HURST III DO Aug 02, 2020 12:55
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
[2020-08-02 15:00] VITALS: BP 104/59
--- NOTE | 2020-08-02 15:36 | DS ---
DATE OF DISCHARGE: 08/02/2020 ADMISSION DIAGNOSIS: Possible stroke. DISCHARGE DIAGNOSES: Resolving stroke symptoms, suspect metabolic encephalopathy from urinary tract infection, hypertension, hyperlipidemia. CONSULTATIONS: Neurology. PROCEDURES: None. HOSPITAL COURSE: The patient is a pleasant elderly female who has some dementia, presented with some stroke symptoms. She initially went to [facility] ER, they transferred her here to get an MRI. We consulted Neurology. No MRI was required. Her symptoms improved with fluids and antibiotics. Over the past couple of days, she is doing better. We plan to discharge to home. DISPOSITION: Back to her previous living arrangement. ACTIVITY: As tolerated. DIET: Low sodium. MEDICATIONS: Please see the [facility]AD. Aspirin 325 a day, atorvastatin 40 a day, albuterol, Zyrtec 10 a day, doxycycline 100 p.o. b.i.d., omeprazole 40 a day and we stopped her home amlodipine. Total time: 34 Minutes, STEVEN HURST DO DR: BREEZY/morris JOB#: [id number] / [id number]
--- NOTE | 2020-08-02 19:06 | NUR ---
Discharge; Teaching verbal and written. Reviewed orders, follow-up, stroke, stroke prevention, FAST, hypertension, smoking cessation, CAD, event monitor, cardiac diet, ect. Patient verbalized understanding. [facility] set up including PT, OT and speech. Event monitor placed prior to discharge by BERONICA Blair. All belonging with patient. 2 IV's removed without complications, catheter tip intact. Waiting on patients ride.
[2020-08-02 19:14] LABS: ANA INTERP Negative (.)
== END 2020-08-02 19:10 | disposition home health service (06) | DRG 61 ==
LOC: ER 18:30 → 1 WEST ICU 21:06 → 2 SOUTH 07-31 20:10 → UNDODISIN 08-01 16:25
PROVIDERS: ADMIT Family Medicine; ATTEND Family Medicine
DX: I63.9 Cerebral infarction, unspecified (principal); G93.41 Metabolic encephalopathy; N39.0 Urinary tract infection, site not specified; R47.01 Aphasia; M19.90 Unspecified osteoarthritis, unspecified site; K21.9 Gastro-esophageal reflux disease without esophagitis; I10 Essential (primary) hypertension; F17.210 Nicotine dependence, cigarettes, uncomplicated; R13.10 Dysphagia, unspecified; Z51.5 Encounter for palliative care; E78.5 Hyperlipidemia, unspecified; R29.810 Facial weakness; J44.9 Chronic obstructive pulmonary disease, unspecified; I35.1 Nonrheumatic aortic (valve) insufficiency; I27.20 Pulmonary hypertension, unspecified; F03.90 Unspecified dementia, unspecified severity, without behavioral disturbance, psychotic disturbance, mood disturbance, and anxiety; Z88.5 Allergy status to narcotic agent; Z87.820 Personal history of traumatic brain injury; Z82.49 Family history of ischemic heart disease and other diseases of the circulatory system
CPT/HCPCS: 36415; 70450; 70496; 70498; 70551; 80048; 80053; 80061; 81001; 82962; 84484; 85025; 85610; 85730; 86038; 87086; 93005; 93306; 94640; 96365; 99285; 99406; J2997; Q9967; 92526-GN; 92610-GN; 97116-GP; 97530-GO; 97530-GP; 97535-GO; G0378